=== PATIENT | male | born 1985 | race African-American/Black ===

== ENCOUNTER 2018-10-15 10:45 | Emergency (ER) | payer OTHER ==
[~2018-10-15] VITALS: Ht 180.3 cm; Wt 140.6 kg
[2018-10-15] MEDS ORDERED: NORFLEX100 MG PO (12:21)
[2018-10-15] MEDS ORDERED: NAPROSYN500 MG PO (12:21)
[2018-10-15 12:44] VITALS: BP 131/79
== END 2018-10-15 12:45 | disposition home or self-care (01) ==
LOC: ER 10:45
DX: S29.012A Strain of muscle and tendon of back wall of thorax, initial encounter (principal); R51 Headache; J45.909 Unspecified asthma, uncomplicated; F17.210 Nicotine dependence, cigarettes, uncomplicated; V89.2XXA Person injured in unspecified motor-vehicle accident, traffic, initial encounter; Y93.I9 Activity, other involving external motion; Y92.410 Unspecified street and highway as the place of occurrence of the external cause; Y99.8 Other external cause status